=== PATIENT | female | born 1990 | race Caucasian/White ===

== ENCOUNTER 2016-04-25 20:45 | Emergency (ER) | payer BC ==
[~2016-04-25] VITALS: Ht 160 cm; Wt 63.5 kg
[2016-04-25 20:59] VITALS: BP 124/75
== END 2016-04-25 22:08 | disposition home or self-care (01) ==
LOC: ER 20:57
DX: L02.214 Cutaneous abscess of groin (principal); L03.314 Cellulitis of groin
CPT/HCPCS: 10060; 99283; A4606; A6403; A6407; Z7610